=== PATIENT | male | born 1950 | race Caucasian/White ===

== ENCOUNTER → 2021-09-08 12:26 | Outpatient (CLI) | payer MEDICARE, SELFPAY ==
--- NOTE | 2021-09-08 12:30 | US_ITS ---
STUDY: THYROID ULTRASOUND REASON FOR EXAM: Male, 70 years old. NODULE TECHNIQUE: Ultrasound evaluation of the thyroid was performed with real-time and static irene-scale imaging. COMPARISON: None. FINDINGS: RIGHT LOBE: The right lobe of the thyroid gland is enlarged and measures 5.9 cm x 2.9 cm x 3.0 cm. There is a heterogeneous echotexture. There are no demonstrated solid, cystic or complex lesions. LEFT LOBE: The left lobe of the thyroid gland is enlarged and measures 6.1 cm x 2.9 cm x 3.2 cm. There is a heterogeneous echotexture. There are no demonstrated solid, cystic or complex lesions. ISTHMUS: The isthmus measures 7 mm. There is a 1.2 cm x 1.2 cm x 0.8 cm cyst in the isthmus. Incidental note is made of a 1.8 cm x 0.8 cm x 0.6 cm left cervical lymph node. US/Thyroid IMPRESSION: There is enlargement of both lobes of the thyroid gland with heterogeneous echotexture. No focal lesion is seen. There is a 1.2 cm x 1.27 x 0.8 cm cyst in the isthmus. Dental note is made of a small left cervical lymph node. Electronically Signed: Charli Reed MD at 15:22 EST , Service support ,
== END ==
PROVIDERS: Referring Provider Otolaryngology; Visit Provider Otolaryngology
DX: E04.1 Nontoxic single thyroid nodule (principal)
CPT/HCPCS: 76536